=== PATIENT | female | born 1970 | race African-American/Black ===

== ENCOUNTER 2023-03-07 09:14 | Outpatient (CLI) | payer OTHER, SELFPAY ==
--- NOTE | ~2023-03-07 | US_ITS ---
EXAMINATION: US soft tissue head and neck DATE: 03/07/2023 10:15 INDICATION: Enlarged thyroid. TECHNIQUE: Multiple ultrasound images of the thyroid were obtained. COMPARISON: None. FINDINGS: The right thyroid lobe measures 5.5 x 1.8 x 2.1 cm. The left thyroid lobe measures 5.3 x 1.9 x 2.2 c m. There are multiple nodules in the thyroid measuring 4 mm or less. In the left thyroid lobe, there is a 6 mm almost entirely cystic nodule (TI-RADS TR1). IMPRESSION: 1. Small thyroid nodules, likely not clinically significant. No follow-up is needed. Reviewed, dictated and finalized at location A. IMPRESSION: 1. Small thyroid nodules, likely not clinically significant. No follow-up is ne eded.
== END 2023-03-07 09:15 | disposition home or self-care (01) ==
PROVIDERS: PCP Family Medicine; Visit Provider Family Medicine
DX: E04.2 Nontoxic multinodular goiter (principal)
CPT/HCPCS: 76536

== ENCOUNTER 2023-08-27 08:33 | Outpatient (CLI) | payer OTHER, SELFPAY ==
--- NOTE | ~2023-08-27 | MM_ITS ---
EXAMINATION: MM screening romana BI w donya HISTORY: Screening mammogram TECHNIQUE: Craniocaudal and mediolateral oblique 3-D tomosynthesis images were obtained and synthetic 2-D images were generated. CAD analysis was submitted and interpreted. COMPARISON: No prior mammogram is available for comparison at this institution. There is reportedly p rior mammogram available [facility]. BREAST PARENCHYMAL COMPOSITION: There are scattered areas of fibroglandular density. FINDINGS: There is mild fibroglandular asymmetry. Recommend comparison with prior mammogram at [facility]. There is no evidence of suspicious mass, calcification, or architectural d istortion to suggest malignancy in either breast. IMPRESSION: 1. Mild fibroglandular asymmetry 2. Recommend comparison with prior mammogram at [facility]. BI-RADS Category 0: Incomplete: Needs additional imaging evaluation. Reviewed, dictated and finalized at location A. STACKER OPERATOR IMPRESSION: 1. Mild fibroglandular asymmetry 2. Recommend comparison with prior mammogram at [facility] . BI-RADS Category 0: Incomplete: Needs additional imaging evaluation.
== END 2023-08-27 08:34 | disposition home or self-care (01) ==
PROVIDERS: PCP Family Medicine; Visit Provider Family Medicine
DX: Z12.31 Encounter for screening mammogram for malignant neoplasm of breast (principal); R92.8 Other abnormal and inconclusive findings on diagnostic imaging of breast
CPT/HCPCS: 77063; 77067

== ENCOUNTER 2024-02-07 07:46 | Emergency (ER) | payer OTHER, SELFPAY ==
[2024-02-07 07:50] VITALS: BP 138/66; PULSE 72; RESP 16; TEMP 36.6; O2SAT 99
--- NOTE | 2024-02-07 09:31 | ED.SKABFB ---
HPI - Skin/Abscess/Foreign Bdy General Chief complaint: Skin/Abscess/Foreign Body Stated complaint: abscess on buttocks Time Seen by Provider: 02/07/24 08:57 History of Present Illness HPI narrative: 53-year-old female presents to the emergency room for evaluation of painful mass to either buttocks. States she observed a painful lump to either buttock yesterday. States it is painful to sit. Also reports of a similar painful mass to the back of her neck. Denies any fevers. Related Data Allergies Allergy/AdvReac Type Severity Reaction Status Date / Time promethazine Allergy Unknown Unknown Verified 04/04/18 12:58 Review of Systems Review of Systems: ROS unremarkable except for noted in HPI Exam Narrative: GENERAL: Well-appearing, well-nourished, no physical limitations, and in no acute distress. HEAD: Normocephalic, atraumatic. EYES: Conjunctivae normal, PERRLA and EOMI. CHEST: Clear to auscultation. No respiratory distress. No wheezes rales or rhonchi. HEART: Regular rate and rhythm. No murmur heard. Normal peripheral pulses. EXTREMITIES: Normal range of motion. No edema. No clubbing or cyanosis SKIN: erythematous, subcutaneous mass approximately 2.5 cm in length to the right buttock, some small pea-sized erythematous mass to the posterior neck NEURO: No focal deficits. Alert and oriented x3. MAEW. CN's II-XI intact bilaterally, normal gait PSYCH: Cooperative. Normal mood and affect. Course Vital Signs Vital signs: Vital Signs Temperature 36.6 C 02/07/24 07:50 Pulse Rate 72 02/07/24 07:50 Respiratory Rate 16 02/07/24 07:50 Blood Pressure 138/66 02/07/24 07:50 Pulse Oximetry 99 02/07/24 07:50 Oxygen Delivery Room Air 02/07/24 07:50 Temperature 36.6 C 02/07/24 07:50 Pulse Rate 72 02/07/24 07:50 Respiratory Rate 16 02/07/24 07:50 Blood Pressure 138/66 02/07/24 07:50 Pulse Oximetry 99 02/07/24 07:50 Oxygen Delivery Room Air 02/07/24 07:50 Discharge Plan Discharge Clinical Impression: Cellulitis, Abscess of skin or subcutaneous tissue Patient Disposition: Home, Self-Care Condition: Stable Instructions: Antibiotic Form, Cellulitis (ED) Prescriptions: New cephalexin 500 mg capsule 500 mg PO Q8H Qty: 21 0RF Follow-up/Referrals: Luis Fernando,Olga Calvin MD [Primary Care Provider] - Time of Disposition: 09:33
== END 2024-02-07 09:35 | disposition home or self-care (01) ==
PROVIDERS: Emergency Provider Nurse Practitioner Family; PCP Family Medicine
DX: L03.317 Cellulitis of buttock (principal)
CPT/HCPCS: 99283

== ENCOUNTER 2024-07-03 01:18 | Day surgery (SDC) | payer OTHER, SELFPAY ==
[2024-06-23 12:49] VITALS: BMI 31.2
[2024-07-03 11:42] VITALS: BP 127/81; PULSE 62; RESP 16; TEMP 36.7; O2SAT 100
[2024-07-03] MEDS: LACTATED RINGERS 1,000 ML 150 ML IV CONT (11:52)
--- NOTE | 2024-07-03 12:04 | P.PNAN_ITS ---
Anes - Initial Pre Proc Eval Procedure: Operation Date: 07/03/24 13:00 Proposed Procedures p Colonoscopy - Sagar aHgan MD Date/Time: 07/03/24 12:04 Surgeon: Sagar Hagan MD Pre Op Diagnosis: anemia Patient Data Age: 53 Gender: F Height: 1.52 m Weight: 71.3 kg Last Vital Signs Temp 36.7 C 07/03/24 11:42 Pulse 62 07/03/24 11:42 Resp 16 07/03/24 11:42 BP 127/81 07/03/24 11:42 Pulse Ox 100 07/03/24 11:42 O2 Del Method Room Air 07/03/24 11:42 Allergies Allergy/AdvReac Type Severity Reaction Status Date / Time promethazine Allergy Unknown Unknown Verified 07/03/24 11:40 Home Medications ?Medication ?Instructions ?Recorded ?Confirmed ?Type ferrous sulfate 325 mg (65 mg 325 mg PO DAILY 06/23/24 07/03/24 History iron) tablet (FeroSul) Patient hx anesthesia problems: none Family hx anesthesia problems: none Results Review: All pre-operative results and documents have been reviewed as part of the pre- operative evaluation. [facility] Past Medical History Medical History (Updated 07/03/24 @ 12:04 by Corwin Villarreal MD) Obesity Social History Social History Smoking status: Current every day smoker Tobacco type: cigars Substance use: current Substance use type: marijuana Other substance usage details: 2-3 x week Living arrangements: with family Spiritual care concerns: No Anes - Eval Final PreProcedure Day of Procedure 07/03/24 12:04 Patient weight: obese Heart: regular rate and rhythm Lungs: clear to auscultation Airway: Mallampati scale class II Neurological: alert and oriented Last oral intake: >/= 8 hours ASA classification: II Emergent: no Anesthetic plan: proceed Anesthesia type and monitoring: general GIVS and standard monitoring Results Review: All pre-operative results and documents have been reviewed as part of the pre- operative evaluation. Informed Consent: The patient's anesthetic plan and its attendant risks and benefits were discussed with the patient/family/POA. Questions were solicited and answers provided to the satisfaction of the patient/family/POA.
--- NOTE | 2024-07-03 12:10 | PM.HPGS ---
History of Present Illness History of Present Illness Consent: Risks, benefits, and alternatives have been discussed and questions answered. Patient agrees to proceed with procedure. Chief complaint: colon screening Narrative: Margie Soler is a 53 year old female here for first screening colonoscopy Review of Systems Review of Systems: All systems reviewed & are unremarkable except as noted in HPI and below PMFSH Past Medical History Medical History (Updated 07/03/24 @ 12:12 by Sagar Hagan MD) Colon cancer screening Obesity Social History Social History Smoking status: Current every day smoker Tobacco type: cigars Substance use: current Substance use type: marijuana Other substance usage details: 2-3 x week Living arrangements: with family Spiritual care concerns: No Meds Home Medications and Allergies Home Medications ?Medication ?Instructions ?Recorded ?Confirmed ?Type ferrous sulfate 325 mg (65 mg 325 mg PO DAILY 06/23/24 07/03/24 History iron) tablet (FeroSul) Allergies Allergy/AdvReac Type Severity Reaction Status Date / Time promethazine Allergy Unknown Unknown Verified 07/03/24 11:40 Vital Signs Vital Signs - 24 hr 07/03/24 11:42 Temperature 98.1 F Pulse Rate 62 Respiratory Rate 16 Blood Pressure 127/81 Pulse Oximetry 100 Oxygen Delivery Room Air Exam Const: General: comfortable and no acute distress HENMT: Face/Nose/Sinus: Normal nares present Eyes: General: appearance normal, both eyes and all related structures Neck: Neck: no JVD Resp: Auscultation: clear to auscultation bilaterally Cardio: Rate: regular rate Rhythm: regular rhythm GI: Inspection: non-distended GI Palp: Yes Soft to palpation Skin: General skin exam: normal color Neuro: General: gait normal Speech: normal speech Extrem: General: normal to inspection Psych: Mental Status: mental status grossly normal Assessment and Plan Assessment and plan (1) Colon cancer screening: Code(s): Z12.11 - Encounter for screening for malignant neoplasm of colon Status: Acute Assessment and Plan: colonoscopy
[2024-07-03 12:25] VITALS: BP 112/56; PULSE 63; RESP 22; O2SAT 100
[2024-07-03 12:35] VITALS: BP 104/68; PULSE 57; RESP 15; O2SAT 100
[2024-07-03 12:45] VITALS: BP 120/62; PULSE 54; RESP 20; O2SAT 100
== END 2024-07-03 13:03 | disposition home or self-care (01) ==
PROVIDERS: PCP Internal Medicine; Referring Provider Nurse Practitioner Adult Health; Visit Provider Internal Medicine Gastroenterology
PROC: 0DJD8ZZ Inspection of Lower Intestinal Tract, Via Natural or Artificial Opening Endoscopic (ICD-10-PCS; CPT 45378; principal; 2024-07-03 13:00)
DX: Z12.11 Encounter for screening for malignant neoplasm of colon (principal); F17.290 Nicotine dependence, other tobacco product, uncomplicated; F12.90 Cannabis use, unspecified, uncomplicated; E66.9 Obesity, unspecified; Z68.30 Body mass index [BMI] 30.0-30.9, adult
CPT/HCPCS: 45378; J2704; J7120

== ENCOUNTER 2025-02-19 07:35 | Outpatient (CLI) | payer OTHER, SELFPAY ==
--- NOTE | ~2025-02-19 | MM_ITS ---
EXAMINATION: MM screening romana BI w donya HISTORY: Screening TECHNIQUE: Craniocaudal and mediolateral oblique 3-D tomosynthesis images were obtained and synthetic 2-D images were generated. CAD analysis was submitted and interpreted. COMPARISON: Comparison to multiple prior studies sequentially, with oldest reviewed study dated 02/2019. BREAST PARENCHYMAL COMPOSITION: Not dense: There are scattered areas of fibroglandular density. FINDINGS: There is no evidence of suspicious mass, calcification, or architectural distortion to sugg est malignancy in either breast. There has been no suspicious interval change. IMPRESSION: 1. No mammographic evidence of malignancy. 2. Recommend routine screening mammography in one year. BI-RADS Category 1: Negative Reviewed, dictated and finalized at location []
--- OUTSIDE RECORDS SUMMARY | 2025-02-19 07:41 | XMS_ITS | Clinical Summary ---
Author Organization [facility] [place] Address [address] [address] Care Team Providers Care Home Health Care Coordinator Name Role Phone Sis Henry MD Primary Care Provider [phone] Allergies Active Allergy Reactions Criticality Noted Date Comments Ciprofloxacin Other (See Comments) Nitrofurantoin Monohyd/M-Cryst Other (See Comments) High 03/17/2020 EKG changes- bradycardia, chest pain. [place] Juice Anaphylaxis High 01/27/2020 [place] Oil Anaphylaxis High 11/03/2012 Promethazine-Codeine Anaphylaxis High 11/03/2012 Medications EPINEPHrine (EpiPen) 0.3 mg/0.3 mL Auto-InjectorIn dications:Sever e allergic reaction with respiratory distress Inject 0.3 mL (0.3 mg) by intramuscular injection 1 time daily as needed for Anaphylaxis. 1 Each 1 08/23/19 23 Active cyclobenzaprine (FLEXERIL) 10 mg tablet Take 10 mg by mouth. 09/17/19 25 Active traZODone (DESYREL) 50 mg tabletIndicatio ns:Insomnia, unspecified type Take 1 Tablet (50 mg) by mouth daily at bedtime. 30 Tablet 1 12/23/19 25 Active cetirizine (ZyrTEC) 10 mg tablet Take 1 Tablet (10 mg) by mouth daily. 90 Tablet 12/23/19 25 Active Additional Information Patient not taking.Reported on 02/11/2025 escitalopram oxalate (LEXAPRO) 10 mg tabletIndicatio ns:Situational mixed anxiety and depressive disorder Take 1 Tablet (10 mg) by mouth daily. 90 Tablet 02/03/20 25 Active meloxicam (MOBIC) 7.5 mg tabletIndicatio ns:Plantar fasciitis Take 1-2 Tablets (7.5-15 mg) by mouth daily. 60 Tablet 1 02/12/20 25 Active escitalopram oxalate (LEXAPRO) 10 mg tabletIndicatio ns:Situational mixed anxiety and depressive disorder Take 1 Tablet (10 mg) by mouth daily. 90 Tablet 1 09/11/19 25 025 Discontin ued(Reord er) Active Problems Problem Noted Date Diagnosed Date Vitamin D deficiency 01/21/2024 Alopecia 01/29/2019 Needle phobia 12/19/2018 Reactive airway disease 12/19/2018 Allergic reaction, history of 06/27/2018 Overview (06/27/2018): To oranges, odor can induce reaction Anemia 10/31/2016 Microcytosis 10/31/2016 Sickle cell trait 10/31/2016 Resolved Problems Problem Noted Date Diagnosed Date Resolved Date Acute pain of left knee 10/10/201711/21 Sprain of lateral collateral ligament of left knee 10/10/2017 12/18/2018 Encounters Date Type Department Care Team Description 02/11/2025 10:30 AM CDT Office Visit [facility] [address] [place] [phone] Sis Henry MD Plantar fasciitis (Primary Dx) 02/10/2025 1:30 PM CDT Office Visit [facility] [address] [place] [phone] Dion Hinkle Adjustment disorder with depressed mood (Primary Dx) 02/05/2025 1:00 PM CDT Procedure visit [facility] [address] [place] [phone] Issue of repeat prescription for medication (Primary Dx) 02/03/2025 External Device Data STL ABSTRACTION Provider, Abstract 02/03/2025 External Device Data [facility] ABSTRACTION Provider, Abstract 02/03/2025 External Device Data [facility] ABSTRACTION Provider, Abstract 02/03/2025 External Device Data [place] ABSTRACTION Provider, Abstract 02/02/2025 External Device Data [place] ABSTRACTION Provider, Abstract 02/02/2025 Refill [facility] [address] [place] [phone] Sis Henry MD Situational mixed anxiety and depressive disorder 01/13/2025 Chart Note [facility] [place] [address] [place] [address] Dion Hinkle 01/11/2025 Telephone [facility] [place] [address] [place] [address] Dion Hinkle [employer] [facility] [employer] (2nd contact. Rescheduled missed appointment to 02/10/25 at 1:30 PM in office.) 01/06/2025 External Device Data ST[place] ABSTRACTION Provider, Abstract 01/05/2025 External Device Data [place] ABSTRACTION Provider, Abstract 01/01/2025 Telephone [facility] [place] [address] [place] [phone] Dion Hinkle [employer] [place] [employer] (1st contact to reschedule missed appointment. Left message.) 12/22/2024 2:00 PM CDT Office Visit [facility] [place] [address] [place] [phone] Sis Henry MD Insomnia, unspecified type (Primary Dx); Adjustment disorder with depressed mood 12/10/2024 External Device Data ST[employer] ABSTRACTION Provider, Abstract 12/08/2024 External Device Data ST[place] ABSTRACTION Provider, Abstract 12/07/2024 1:30 PM CDT Office Visit [place] [address] [place] [phone] Dion Hinkle Adjustment disorder with depressed mood (Primary Dx) 12/02/2024 Chart Note [facility] [place] [address] [place] [phone] Dion Hinkle from Last 3 Months Immunizations Immunization Administration Dates Next Due (ADACEL/BOOSTRIX)(10 YR UP) TDAP VACCINE, 0.5ML, IM 09/11/2024 (PFIZER)(12 YR UP) COVID-19 VACCINE - EMERGENCY USE AUTHORIZATION, MRNA, [id number](PF) 30 MCG/0.3 ML IM SUSP 10/21/2020,09/30/2020 Family History Medical History Relation Name Comments Prostate Cancer Brother Hypertension Father Prostate Cancer Father Throat Cancer Half-Sister Cancer Maternal Grandfather Heart Attack Maternal Grandmother Breast Cancer Mother Cancer Paternal Grandfather Glaucoma Paternal Grandmother No Known Problems Son 1 No Known Problems Son 2 Relation Name Status Comments Brother Alive Father Half-Sister Maternal Grandfather Maternal Grandmother Mother Alive Paternal Grandfather Paternal Grandmother Son 1 Alive Son 2 Alive Social History Tobacco Use Types Packs/Day Years Used Date Smoking Tobacco: Some Days Cigars Smokeless Tobacco: Never Tobacco Cessation:Ready to Q uit: Not Asked; Counseling Given: Not Answered Alcohol Use Standard Drinks/Week Comments Not Currently 0 (1 standard drink = 0.6 oz pur e alcohol) occasionally Comments No Sex and Gender Information Value Date Recorded Sex Assigned at Not on file Legal Sex Female 11:21 AM CDT Gender Identity Not on file Sexual Orientation Not on file Last Filed Vital Signs Vital Sign Reading Time Taken Comments Blood Pressure 122/82 02/11/2025 10:23 AM CDT Pulse 63 02/11/2025 10:23 AM CDT Temperature 36.7 C (98.1 F) 02/11/2025 10:23 AM CDT Respiratory Rate 18 02/11/2025 10:23 AM CDT Oxygen Saturation 97% 02/11/2025 10:23 AM CDT Inhaled Oxygen Concentration - - Weight 73.5 kg (162 lb) 02/11/2025 10:23 AM CDT Height 152.4 cm (5') 02/11/2025 10:23 AM CDT Body Mass Index 31.64 02/11/2025 10:23 AM CDT Plan of Treatment Upcoming Encounters Date Type Department Care Team (Late st Contact Info) Description 03/10/2025 10:30 AM CDT Office Visit [facility] [address] [place] [address] Sis Henry MD [address] [place] [address] 03/12/2025 1:30 PM CDT Office Visit [facility] [place] [address] [place] [address] Dion Hinkle [address] [place] [phone] Health Maintenance Due Date Last Done Comments HEPATITIS B VACCINES (1 of 3 - 19+ 3-dose series) 1989 HPV/Cotest (21-29) 09/21/1991 CERVICAL CANCER SCREENING 2000 HPV/Cotest (30-65) 2000 PAP SMEAR 2000 FIT-DNA Q 3 years 09/21/2015 FIT/FOBT Q 1 year 09/21/2015 Flex Sig/CT Colonography Q 5 years 09/21/2015 ZOSTER VACCINE (1 of 2) 2020 COVID-19 Vaccine (2023-2 5 season) 2024 10/21/2020, 09/30/2020 BREAST CANCER SCREENING 08/27/2024 08/27/19 24, 04/27/2020 (Previously completed), 04/28/2019, Additional history exists INFLUENZA VACCINE (#1) 2025 5, 09/05/2022, 06/22/2021 Pre-Diabetes and Diabetes Screening 09/11/2027 09/11/2024 COLORECTAL SCREENING 07/03/2034 07/03/2024 Colorectal Cancer Screening 07/03/2034 DTAP/TDAP/TD VACCINES (2 - T d or Tdap) 09/11/2034 09/11/2024 Procedures Procedure Name Priority Date/Time Associated Diagnosis Comments HEMOGLOBIN A1C Routine 09/11/2024 11:24 AM SUPERVISOR [employer] Screening for diabetes mellitus MAMMO 3D LIA SCREEN BILAT W OR WO CAD Routine 08/27/2023 Encounter for screening for malignant neoplasm of breast, unspecified screening modality from Last 3 Months or Most Recently Relevant to Health Maintenance Results * HEMOGLOBIN A1C (09/11/2024 11:24 AM SU[employer]) HEMOGLOBIN A1C 5.0 <5.7 % of total Hgb imojiKenroy Villatoro Comment: For the purpose of screening for the presence of diabetes: <5.7% Consistent with the absence of diabetes 5.7-6.4% Consistent with increased risk for diabetes (prediabetes) > or =6.5% Consistent with diabetes This assay result is consistent with a decreased risk of diabetes. Currently, no consensus exists regarding use of hemoglobin A1c for diagnosis of diabetes in children. According to [place] Diabetes Association (ADA) guidelines, hemoglobin A1c <7.0% represents optimal control in non- diabetic patients. Different metrics may apply to specific patient populations. Standards of Medical Care in Diabetes(ADA). ESTIMATED AVERAGE GLUCOSE (MG/DL) 97 mg/dL Saiguo kamille Villatoro ESTIMATED AVERAGE GLUCOSE (MMOL/L) 5.4 mmol/L [facility] Comment: Test Performed at: [place] [address] [place] [address] CrisRodAva Mindy Blood 09/11/2024 11:2 4 AM [employer] 09/12/2024 2:27 AM [employer] us Sis Henry MD CHEMISTRY ORDERABLES Final Res ult [facility] [phone] [facility] [place] [facility] [place] [address] [place] [address] * MAMMO SCRN BILAT 3D LIA W OR WO CAD (08/27/2023) Anatomical Region Laterality Modality Breast Bilateral Mammography us Olga oGuld MD MAMMO ORDERABLES Final Result from Last 3 Months or Most Recently Relevant to Health Maintenance Insurance [employer] * Guarantor: [employer] Account Type Relation to Patient Date of Phone Billing Address Corporate Employer ATTN: PATTI CORDERO [address] [address] Care Teams Home Health Care Coordinator Relationship Specialty Start Date End Date Sis Henry MD [address] [place] [phone] PCP - General Internal Medicine 12/10/23
--- OUTSIDE RECORDS SUMMARY | 2025-02-19 07:41 | XMS_ITS | Clinical Summary ---
Author Organization [facility] [address] [place] Address [address] [place] [phone] Care Team Providers Care Fine Arts Instructor Name Role Phone Tasia Samuel COREMAKER APPRENTICE Primary Care Provider Allergies Active Allergy Reactions Criticality Noted Date Comments Ciprofloxacin Other (See comments) Low 09/17/2024 Nitrofurantoin Monohyd/M-Cryst Other (See comments) High 03/17/2020 EKG changes- bradycardia, chest pain. [place] Juice Promethazine Medications cetirizine (ZyrTEC) 10 mg tablet Take 1 tablet (10 mg total) by mouth daily 3 Active EPINEPHrine 0.3 mg/0.3 mL auto-injection syringe Inject 0.3 mL (0.3 mg total) into the muscle as instructed daily as needed 3 Active ergocalciferol (VITAMIN D) 50,000 unit capsule Take 1 capsule (50,000 Units total) by mouth once a week 5 Active escitalopram (LEXAPRO) 10 mg tablet Take 1 tablet (10 mg total) by mouth daily 5 Active cyclobenzaprine (FLEXERIL) 10 mg tablet Take 1 tablet (10 mg total) by mouth 3 (three) times a day as needed for muscle spasms 20 tablet 5 Active naproxen (NAPROSYN) 500 mg tablet Take 1 tablet (500 mg total) by mouth 2 (two) times a day as needed for pain (pain) for up to 7 days 14 tablet 5 Active Active Problems No known active problems Social History Tobacco Use Types Packs/Day Years Used Date Smoking Tobacco: Never Assessed Comments Unknown Sex and Gender Information Value Date Recorded Sex Assigned at Not on file Legal Sex Female 7:30 PM LIFE INSURANCE SPECIALIST Gender Identity Not on file Sexual Orientation Not on file Obstetrics History Last Filed Vital Signs Vital Sign Reading Time Taken Comments Blood Pressure 136/82 09/17/2024 9:15 AM LIFE INSURANCE SPECIALIST Pulse 81 09/17/2024 9:15 AM LIFE INSURANCE SPECIALIST Temperature 36.8 C (98.2 F) 09/17/2024 9:15 AM LIFE INSURANCE SPECIALIST Respiratory Rate 20 09/17/2024 9:15 AM LIFE INSURANCE SPECIALIST Oxygen Saturation 98% 09/17/2024 9:15 AM LIFE INSURANCE SPECIALIST Inhaled Oxygen Concentration - - Weight 74.8 kg (165 lb) 09/17/2024 9:15 AM LIFE INSURANCE SPECIALIST Height - - Body Mass Index - - Plan of Treatment Health Maintenance Due Date Last Done Comments Cervical Cancer Screening 1970 Colon Cancer Screening-Colonoscopy 1970 Depression Screening 1970 Hepatitis C Screening 1970 Hepatitis B Screening 1988 Regular Well Visit/Exam 18-64 1988 Zoster Vaccine (1 of 2) 2020 Covid-19 Vaccine (3 - 2023-2 5 season) 2024 10/21/2020, 09/30/2020 Breast Cancer Screening-Mammogram 08/27/2024 08/27/2023, 08/27/2023, 05/11/2016 Influenza Vaccine (#1) 2025 DTaP/Tdap/Td Vaccine (2 - Td or Tdap) 09/11/2034 09/11/2024 Pneumococcal vaccine <65 Aged Out No longer eligible based on patient's age to complete this topic Insurance MARQUES YUGIANCE Care Teams Fine Arts Instructor Relationship Specialty Start Date End Date Tasia Samuel NP PCP - General Nurse Practitioner 12/26/21
--- OUTSIDE RECORDS SUMMARY | 2025-02-19 07:41 | XMS_ITS | Referral Summary ---
Author Organization [facility] [address] Address [address] [place] [phone] Care Team Providers Care Surgical Scrub Technician Name Role Phone Tasia Samuel BRANCHER Primary Care Provider Allergies Active Allergy Reactions Criticality Noted Date Comments Ciprofloxacin Other (See comments) Low 09/17/2024 Nitrofurantoin Monohyd/M-Cryst Other (See comments) High 03/17/2020 EKG changes- bradycardia, chest pain. [place] Juice Promethazine Medications cetirizine (ZyrTEC) 10 mg [...] on file Legal Sex Female 7:30 PM ENTRY LEVEL RECEPTIONIST Gender Identity Not on file Sexual Orientation Not on file Last Filed Vital Signs Vital Sign Reading Time Taken Comments Blood Pressure 136/82 09/17/2024 9:15 AM ENTRY LEVEL RECEPTIONIST Pulse 81 09/17/2024 9:15 AM ENTRY LEVEL RECEPTIONIST Temperature 36.8 C (98.2 F) 09/17/2024 9:15 AM ENTRY LEVEL RECEPTIONIST Respiratory Rate 20 09/17/2024 9:15 AM ENTRY LEVEL RECEPTIONIST Oxygen Saturation 98% 09/17/2024 9:15 AM ENTRY LEVEL RECEPTIONIST Inhaled Oxygen Concentration - - Weight 74.8 kg (165 lb) 09/17/2024 9:15 AM ENTRY LEVEL RECEPTIONIST Height - - Body Mass Index - - Plan of Treatment Not on file Insurance [employer]LEGI[employer] Care Teams Surgical Scrub Technician Relationship Specialty Start Date End Date Tasia Samuel NP PCP - General Nurse Practitioner 12/26/21
--- OUTSIDE RECORDS SUMMARY | 2025-02-19 07:42 | XMS_ITS | Clinical Summary ---
Author Organization [facility] Address [address] [place] [address] Phone Care Team Providers Care Carpentry Professional Name Role Phone Provider, None Primary Care Provider Unavailabl e Allergies Active Allergy Reactions Criticality Noted Date Comments [place] Oil Anaphylaxis 11/03/2012 Promethazine-Codeine Anaphylaxis 11/03/2012 Medications HYDROcodone-acet aminophen 5-325 MG PO TABS Take 1-2 Tabs by mouth every 4 hours as needed for Pain. 12 Tab 0 11/03/2012 Active Social History Tobacco Use Types Packs/Day Years Used Date Smoking Tobacco: Never Assessed Comments No Sex and Gender Information Value Date Recorded Sex Assigned at Not on file Legal Sex Female 5:10 PM CDT Gender Identity Not on file Sexual Orientation Not on file Last Filed Vital Signs Vital Sign Reading Time Taken Comments Blood Pressure 123/70 11/03/2012 5:18 PM CDT Pulse 60 11/03/2012 5:18 PM CDT Temperature 37 C (98.6 F) 11/03/2012 5:18 PM CDT Respiratory Rate 18 11/03/2012 5:18 PM CDT Oxygen Saturation 99% 11/03/2012 5:18 PM CDT Inhaled Oxygen Concentration - - Weight 61.2 kg (135 lb) 11/03/2012 5:16 PM CDT Height 152.4 cm (5') 11/03/2012 5:16 PM CDT Body Mass Index 26.37 11/03/2012 5:16 PM CDT Plan of Treatment Not on file Insurance BLUE [employer] MD BLUE [facility] [employer] [facility] Care Teams Carpentry Professional Relationship Specialty Start Date End Date Provider, None [place] PCP - General 11/03/12
== END 2025-02-19 07:36 | disposition home or self-care (01) ==
LOC: ANHIMG 07:39
PROVIDERS: PCP Internal Medicine; Visit Provider Internal Medicine
DX: Z12.31 Encounter for screening mammogram for malignant neoplasm of breast (principal)
CPT/HCPCS: 77063; 77067